=== PATIENT | male | born 1945 | race Two or more races ===

== ENCOUNTER 2025-01-14 20:04 | Emergency (ER) | payer OTHER ==
[~2025-01-14] VITALS: Ht 180.3 cm; Wt 83.9 kg
[2025-01-14] MEDS ORDERED: CLINDAMYCIN PHOSPHATE 150 MG/ML (600mg) IM STA (20:58)
== END 2025-01-14 21:11 | disposition home or self-care (01) ==
LOC: ER 20:04
DX: L02.12 Furuncle of neck (principal)
CPT/HCPCS: 96372; 99282; J3490

== ENCOUNTER 2025-01-17 10:14 | Outpatient (CLI) | payer OTHER | END 2025-01-17 11:14 | disposition home or self-care (01) | LOC: WOUND MED 10:14 → WOUND CARE 10:14 → WOUND MED 11:14 | PROVIDERS: ATTEND Specialist | DX: L02.11 Cutaneous abscess of neck (principal) | CPT/HCPCS: 11042; A4927; A6199; A6223 ==